=== PATIENT | female | born 1965 | race Caucasian/White ===

== ENCOUNTER → 2017-12-10 | Outpatient (CLI) | payer OTHER ==
[~2017-12-10] MED LIST: IOPAMIDOL (ISOVUE-300) 100 ML BTL ONE
== END ==
LOC: FIMAGING 08:15
PROVIDERS: ATTEND Surgery
DX: K59.00 Constipation, unspecified (principal); Z90.89 Acquired absence of other organs; Z90.81 Acquired absence of spleen
CPT/HCPCS: 74177; Q9967